=== PATIENT | female | born 1955 | race Hispanic/Latino ===

== ENCOUNTER 2022-10-22 11:24 | Emergency (ER) | payer OTHER ==
[~2022-10-22] VITALS: Ht 149.9 cm; Wt 94.8 kg
[2022-10-22 11:28] VITALS: BP 162/89
[2022-10-22] MEDS ORDERED: DICL75TA5 PO (13:42)
[2022-10-22] MEDS ORDERED: KETOROLAC 30MG VIAL (30MG/ML) IM ONE (15:00)
== END 2022-10-22 14:58 | disposition home or self-care (01) ==
LOC: EDH 11:24
DX: M17.12 Unilateral primary osteoarthritis, left knee (principal); M25.562 Pain in left knee; I10 Essential (primary) hypertension; E78.00 Pure hypercholesterolemia, unspecified; R22.42 Localized swelling, mass and lump, left lower limb; Z90.710 Acquired absence of both cervix and uterus; Z98.890 Other specified postprocedural states
CPT/HCPCS: 99285; 93971; 73562; 96372; J1885

== ENCOUNTER → 2023-03-19 | Outpatient (CLI) | payer OTHER ==
[~2023-03-19] MED LIST: DICL75TA5 PO
== END | disposition home or self-care (01) ==
LOC: RAH 13:38
PROVIDERS: ATTEND Orthopaedic Surgery
DX: M17.12 Unilateral primary osteoarthritis, left knee (principal); M25.462 Effusion, left knee; M84.362G Stress fracture, left tibia, subsequent encounter for fracture with delayed healing
CPT/HCPCS: 73721